=== PATIENT | male | born 1985 | race Caucasian/White ===

== ENCOUNTER 2023-05-27 23:34 | Emergency (ER) | payer OTHER, SELFPAY ==
[2023-05-27 23:45] VITALS: BP 134/92
[2023-05-28 00:27] VITALS: BP 111/86
[2023-05-28 00:28] VITALS: BMI 33.1
--- NOTE | 2023-05-28 00:28 | ED.GENMED ---
History of Present Illness
<MEGHAN Zavaleta - Last Filed: 05/28/23 00:37>
General
Chief Complaint: Musculo-Skeletal Complaint
Source: patient
Exam Limitations: none
Time Seen by Provider: 05/28/23 00:14
Nursing documentation reviewed up to this point in time: agreed with
Travel History
Have you had any contact with someone who has COVID-19?: No
Do you have any symptoms of coronavirus? Fever > 100 degrees, chills, cough, shortness of breath, sore throat, loss of taste or smell, muscle aches, or headache?: No
History of Present Illness
History of Present Illness:
patient is a 38 y/o male presenting with R hip pain x 1 day. Patient states the pain is worse with walking and in extension. Patient took some ibuprofen with no relief. Patient states that he noticed it worsen when laying down in bed on his back,
but the pain was worse laying on the affected side. Patient describes the pain over the lateral aspect of the proximal leg. Patient denies any trauma to the area or exacerbating injury. Patient denies weakness, back pain, groin pain, tingling,
fever, or abdominal pain near the area. patient denies any alcohol or smoking in the last 48 hours.
Past History
<MEGHAN Zavaleta - Last Filed: 05/28/23 00:37>
Past History
ED Past Medical History: None
ED Past Surgical History: Other (Dental)
Social History
Tobacco: Other (Occasional)
Alcohol: Occasional
Drug: None
Personal: Single
Living: with family
Review of Systems
<MEGHAN Zavaleta - Last Filed: 05/28/23 00:37>
Review of Systems
Musculoskeletal: Reports joint pain and muscle pain (lateral thigh pain )
Phy Exam
<MEGHAN Zavaleta - Last Filed: 05/28/23 00:37>
Cardiovascular Exam
Cardiovascular Exam: regular rate/rhythm
Pulmonary Exam
Pulmonary Exam: lungs clear, chest non tender and no stridor
Neurological Exam
Neurological Exam: no motor deficits and no sensory deficits
Musculoskeletal Exam
Musculoskeletal Exam: full ROM, neuro vasc intact and other (R leg pain worse in passive hip abduction and adduction, no pain in hip flexion; point tenderness noted over the R trochanteric bursa with deep palpation )
Skin Exam
Skin Exam: normal color, warm/dry and no petechia
<Adithya Fernandez DO - Last Filed: 05/28/23 01:21>
Physical Exam
Physical Exam:
Physical Exam
General: no apparent distress, not acutely ill
Neck: No jaundice
Heart: Regular
Lungs: no acute respiratory distress
Neuro: alert and oriented. no focal neurological deficits
Skin: no rash
Psychiatric: well kept. interactive and cooperative
Extremities: No jaundice mild tenderness over the iliotibial band no pain with range of motion of the hip
Course
<MEGHAN Zavaleta - Last Filed: 05/28/23 00:37>
Orders/Labs/Results
Orders:
Orders
05/28/23 00:36
CR Hip - RT w/wo Pel 2-3 Vw* Urgent
Reason For Exam: pian
05/28/23 00:51
Acetaminophen [Tylenol] 1,000 mg PO NOW STA
Cyclobenzaprine HCl [Flexeril] 10 mg PO NOW STA
Vital Signs
Initial and Last Documented VS:
Initial Vital Signs
Temp Pulse Resp BP Pulse Ox
97.8 F 74 22 134/92 98
05/27/23 23:45 05/27/23 23:45 05/27/23 23:45 05/27/23 23:45 05/27/23 23:45
Last Documented Vital Signs
Temp Pulse Resp BP Pulse Ox
97.8 F 74 22 111/86 98
05/27/23 23:45 05/27/23 23:45 05/27/23 23:45 05/28/23 00:27 05/28/23 00:30
<Adithya Fernandez DO - Last Filed: 05/28/23 01:21>
Orders/Labs/Results
Orders:
Orders
05/28/23 00:36
CR Hip - RT w/wo Pel 2-3 Vw* Urgent
Reason For Exam: pian
05/28/23 00:51
Acetaminophen [Tylenol] 1,000 mg PO NOW STA
Cyclobenzaprine HCl [Flexeril] 10 mg PO NOW STA
Vital Signs
Initial and Last Documented VS:
Initial Vital Signs
Temp Pulse Resp BP Pulse Ox
97.8 F 74 22 134/92 98
05/27/23 23:45 05/27/23 23:45 05/27/23 23:45 05/27/23 23:45 05/27/23 23:45
Last Documented Vital Signs
Temp Pulse Resp BP Pulse Ox
97.8 F 74 22 111/86 98
05/27/23 23:45 05/27/23 23:45 05/27/23 23:45 05/28/23 00:27 05/28/23 00:30
<MEGHAN Zavaleta - Last Filed: 05/28/23 00:37>
MDM/Problems Addressed
Differential Diagnosis Includes:
IT band syndrome
bursitis
tendonitis
muscle strain
MDM/Problems Addressed:
R hip pain
<MEGHAN Zavaleta - Last Filed: 05/28/23 00:37>
*Critical Care Note
Total Time (30-74mins, 75-104mins- exclusive of procedures): Not Applicable
<Adithya Fenrandez DO - Last Filed: 05/28/23 01:21>
*Radiology
Radiology exam reviewed: preliminary read by ED provider
*Pulse Oximetry
Patient hypoxic: no
<Adithya Fernandez DO - Last Filed: 05/28/23 01:21>
Update Note
Update Note:
1:20 AM x-ray noted no obvious pathology formal report pending
ED Attending Note
<MEGHAN Zavaleta - Last Filed: 05/28/23 00:37>
-
Portions of this chart may have been created with voice recognition software.� Occasional wrong word or��sound alike� substitutions may have occurred due to the inherent limitations of voice recognition software.
<Adithya Fernandez DO - Last Filed: 05/28/23 01:21>
ED Attending Note
Patient seen and examined by attending physician: Yes
I performed the substantive portion of visit, reviewed & personally made and approve the management plan that is documented in note by myself or SANTHOSH.: Yes
ED Attending Note:
38-year male limited past medical history 12 hours of right lateral hip pain somewhat worse with movement and abduction, no fevers no trauma
Will check screening x-ray treat symptomatically
Very low clinical suspicion for septic arthritis by history and physical
Discharge Plan
Departure
Patient Disposition: Home (Routine Discharge)
Date of Disposition: 05/28/23
Time of Disposition: 01:17
Patient with high blood pressure during this ER visit?: No
Condition: Good
Discharge Problem:
Strain of hip
Instructions: Ibuprofen
Prescriptions:
New
ibuprofen 600 mg tablet
600 mg PO Q8H PRN (Reason: Pain) Qty: 20 0RF
metaxalone 800 mg tablet
800 mg PO TID PRN (Reason: muscle pain) Qty: 10 0RF
No Action
No Meds [No Current Medications]
ondansetron [Zofran ODT] 8 MG tablet,disintegrating
8 mg PO Q8H Qty: 12 0RF
ondansetron 4 MG tablet,disintegrating
4 mg PO TIDPRN PRN (Reason: nausea/vomiting) Qty: 12 0RF
dicyclomine 20 MG tablet
20 mg PO Q8HPRN PRN (Reason: cramping) Qty: 20 0RF
Referrals:
Sandip Batres MD [Family Provider] - Next open appointment
Activity Restrictions/Additional Instructions:
Rest, ice, ibuprofen every 6-8 hours, Skelaxin every 8 hours as needed for muscle spasm
Follow-up with your family physician
Interventions
Interventions:
*Risk Screen - Suicide Last Done: 05/27/23 23:45
*General Assessment Last Done: 05/28/23 00:29
*Neglect/Abuse Screening Last Done: 05/27/23 23:45
ED- Fall Risk Assessment Last Done: 05/28/23 00:29
*ED COVID-19 Vaccine History Last Done: 05/28/23 00:29
ED-Musculoskeletal Assessment Last Done: 05/28/23 00:29
[2023-05-28] MEDS: FLEXERIL 10 MG PO (00:59)
[2023-05-28] MEDS: TYLENOL 1000 MG PO (00:59)
[2023-05-28 01:02] VITALS: BP 111/79
== END 2023-05-28 01:33 | disposition home or self-care (01) ==
LOC: EMR 23:34
PROVIDERS: EMERGENCY PHYSICIAN Emergency Medicine; FAMILY PHYSICIAN Family Medicine
DX: S76.011A Strain of muscle, fascia and tendon of right hip, initial encounter (principal); X58.XXXA Exposure to other specified factors, initial encounter
CPT/HCPCS: 99283; 73502